=== PATIENT | female | born 1965 ===

== ENCOUNTER 2018-03-30 09:48 | Emergency (ER) | payer BC ==
[2018-03-30 09:55] VITALS: TEMP 97.9; BMI 23.3
[2018-03-30] MEDS ORDERED: Sodium Chloride 0.9% 1,000 ML IV STA (10:10)
[2018-03-30 10:31] LABS: BASO % 0.7 % (0.0-2.0); EOS # 0.2 K/uL (0.0-0.7); EOS % 3.8 % (0.0-4.0); HEMOGLOBIN 13.6 g/dL (12.0-16.0); LYMPH # 2.3 K/uL (1.0-4.3); LYMPH % 40.4 % (20.0-40.0); MEAN CELL VOLUME 92.4 fl (81.0-99.0); MEAN CORPUSCULAR HEMOGLOBIN 31.4 pg (27.0-31.0); MEAN PLATELET VOLUME 9.7 fl (7.2-11.7); MONO # 0.5 K/uL (0.0-0.8); MONO % 9.2 % (0.0-10.0); NEUT # 2.7 K/uL (1.8-7.0); NEUT % 45.9 % (50.0-75.0); NRBC % 0.1 % (0.0-0.0); RBC 4.31 Mil/uL (3.80-5.20); RED CELL DISTRIBUTION WIDTH 12.7 % (11.5-14.5); WHITE BLOOD COUNT 5.8 K/uL (4.8-10.8)
[2018-03-30 10:51] LABS: BLOOD UREA NITROGEN 13 mg/dl (7-17); CALCIUM 9.1 mg/dL (8.4-10.2); GFR NON-AFRICAN AMERICAN > 60
--- NOTE | 2018-03-30 11:02 | CT ---
Date of service: 03/30/2018 PROCEDURE: CT HEAD WITHOUT CONTRAST. HISTORY: head trauma COMPARISON: None available. TECHNIQUE: Axial computed tomography images were obtained through the head/brain without intravenous contrast. Radiation dose: Total exam DLP = 795.8 mGy-cm. This CT exam was performed using one or more of the following dose reduction techniques: Automated exposure control, adjustment of the mA and/or kV according to patient size, and/or use of iterative reconstruction technique. FINDINGS: HEMORRHAGE: No intracranial hemorrhage. BRAIN: No mass effect or edema. No atrophy or chronic microvascular ischemic changes. VENTRICLES: Unremarkable. No hydrocephalus. CALVARIUM: Unremarkable. PARANASAL SINUSES: Unremarkable as visualized. No significant inflammatory changes. MASTOID AIR CELLS: Unremarkable as visualized. No inflammatory changes. OTHER FINDINGS: None. IMPRESSION: No acute intracranial pathology.
--- NOTE | 2018-03-30 11:04 | CT ---
Date of service: 03/30/2018 PROCEDURE: CT Cervical Spine without contrast HISTORY: head trauma COMPARISON: None available. TECHNIQUE: Axial computed tomography images were obtained of the cervical spine without the use of intravenous contrast. Coronal and sagittal reformatted images were created and reviewed. Radiation dose: Total exam DLP = 237.8 mGy-cm. This CT exam was performed using one or more of the following dose reduction techniques: Automated exposure control, adjustment of the mA and/or kV according to patient size, and/or use of iterative reconstruction technique. FINDINGS: VERTEBRAE: No fracture. Normal alignment. No destructive bony lesion. DISCS/SPINAL CANAL/NEURAL FORAMINA: No significant central canal or neural foraminal stenosis. Multilevel disc space narrowing with osteophytic ridging, worst at C5-6. PARASPINAL SOFT TISSUES: Unremarkable. OTHER FINDINGS: None. IMPRESSION: No acute fracture. Multilevel degenerative changes, worst at C5-6.
[2018-03-30] MEDS ORDERED: Metoclopramide 10 mg/10 ml Cup PO STA (11:32)
--- NOTE | 2018-03-30 12:53 | ED PDOC ---
HPI: Headache Time Seen by Provider: 03/30/18 10:07 Chief Complaint (Nursing): Headache Chief Complaint (Provider): Headache History Per: Patient History/Exam Limitations: no limitations Onset/Duration Of Symptoms: Days Current Symptoms Are (Timing): Still Present Additional Complaint(s): 52 year old female presets to the ED with a worsening headache since Saturday. Patient states she was with her friends, walking around a backyard when she stood up and hit her head on an overlying wooden shelf. She states she immediately became dizzy and lost vision but denies LOC. Dizziness and loss of vision resolved within 10 seconds. Patient has been able to control headache with Tylenol over the past week. Headache became severe last night so she took her sons hydrocodone pills. Her headache temporarily felt better but returned a few hours after that. Patient denies nausea, vomiting or any other medical complaints. She describes pain as an electric shock that originates at the top of her head and goes down the back of her neck. PMD: Rosmery Past Medical History Reviewed: Historical Data, Nursing Documentation, Vital Signs Vital Signs: Last Vital Signs Temp 97.9 F 03/30/18 09:52 Pulse 65 03/30/18 09:52 Resp 18 03/30/18 09:52 BP 105/79 03/30/18 09:52 Pulse Ox 98 03/30/18 09:52 - Medical History PMH: No Chronic Diseases - Family History Family History: States: Unknown Family Hx - Home Medications Home Medications: Ambulatory Orders Medication Instructions Recorded oxyCODONE/Acetaminophen [Percocet 1 ea PO Q4 #8 tab 03/30/18 5/325 mg Tab] - Allergies Allergies/Adverse Reactions: Allergies Allergy/AdvReac Type Severity Reaction Status Date / Time No Known Allergies Allergy Verified 03/30/18 10:00 Review of Systems ROS Statement: Except As Marked, All Systems Reviewed And Found Negative Neurological: Positive for: Headache Physical Exam - Reviewed Nursing Documentation Reviewed: Yes Vital Signs Reviewed: Yes - Physical Exam Appears: Positive for: No Acute Distress Skin: Positive for: Normal Color Eye Exam: Positive for: Normal appearance, PERRL Cardiovascular/Chest: Positive for: Regular Rate, Rhythm. Negative for: Murmur Respiratory: Positive for: Normal Breath Sounds. Negative for: Respiratory Distress Gastrointestinal/Abdominal: Positive for: Normal Exam, Soft. 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 Time: 1323 --Patient reports improvement in pain. CT and labs are unremarkable. Patient to be discharged home with prescription for naproxen and 4 pills of Percocet only to be used if there is severe pain. Patient given referral for neuro. She is being discharged home with son. Scribe Attestation: Documented by Daxa Price, acting as a scribe for Estefany Fajardo MD Provider Scribe Attestation: All medical record entries made by the Scribe were at my direction and personally dictated by me. I have reviewed the chart and agree that the record accurately reflects my personal performance of the history, physical exam, medical decision making, and the department course for this patient. I have also personally directed, reviewed, and agree with the discharge instructions and disposition. Disposition - Clinical Impression Clinical Impression: Headache, Head trauma - Disposition Referrals: Yoan Roman MD [Medical Doctor] - Disposition: Routine/Home Disposition Time: 13:23 Condition: IMPROVED Additional Instructions: Take Motrin or Tylenol for pain. Take Percocet only for severe pain. Do not drive a car, operate machinery, or perform dangerous activities while taking Percocet. Only take Percocet when other medications do not work because Percocet has a high risk for addiction. Follow up with primary medical doctor and neurologist for further workup of headache. Return to the emergency department if symptoms worsen or new symptoms develop. Prescriptions: oxyCODONE/Acetaminophen [Percocet 5/325 mg Tab] 1 ea PO Q4 #8 tab Instructions: Headache, Adult (DC) Forms: [employer] (Citizen Of [place]), [employer] ([place]ic) Print Language: PASHTO
[2018-03-30] MEDS ORDERED: Oxycodone/Acetaminophen 5/325 mg Tab PO ONE (13:07)
[2018-03-30 13:16] VITALS: BP 96/57; PULSE 62; RESP 16
[2018-03-30 13:31] VITALS: O2SAT 98
--- NOTE | 2018-03-31 00:15 | CARD ---
APPROVED REPORT Date of service: 03/30/2018 EKG Measurement Heart [id number] <Conclusion> Sinus bradycardia Low voltage QRS Borderline ECG
== END 2018-03-30 13:53 | disposition home or self-care (01) ==
LOC: H.ER 09:48
DX: R51 Headache (principal); S09.90XA Unspecified injury of head, initial encounter; W22.8XXA Striking against or struck by other objects, initial encounter; Y92.89 Other specified places as the place of occurrence of the external cause
CPT/HCPCS: 70450; 72125; 80048; 85025; 93005; 96361; 96374; 99284; J1885; J7030